=== PATIENT | male | born 1990 ===

== ENCOUNTER 2019-06-18 17:56 | Emergency (ER) | payer OTHER ==
--- NOTE | 2019-06-18 18:06 | EDM.PDOC ---
ED HPI GENERAL MEDICAL PROBLEM - General Source of Information: Reports: Patient, EMS, EMS Notes Reviewed, Family, RN, RN Notes Reviewed History Limitations: Reports: No Limitations - History of Present Illness Onset: Today, Sudden <Ruth Banegas - Last Filed: 06/18/19 18:39> <Gustavo Pollard - Last Filed: 06/18/19 20:33> - General Chief Complaint: Neurological Problem Stated Complaint: AMBULANCE Time Seen by Provider: 06/18/19 18:05 - History of Present Illness INITIAL COMMENTS - FREE TEXT/NARRATIVE: Pt to ER per [facility] with c/o new onset seizure. Pt alert and oriented upon arrival to the ER. Uncle present in the room that witnessed the seizure states the [place] to the side and began having a seizure. Uncle states he thinks it lasted about 3 minutes. He states when it stopped the patient was disoriented to person, place , and time. Uncle states he did not hit his head. States he was bent over when he "slumped" to the side. Pt denies any seizure history. States he has a history of asthma, but takes no meds for it. Pt states the only medication he takes is Adderall. Denies regular alcohol use, states he had a "few beers" last night. Denies drug use. Denies any recent illness. (Ruth Banegas) - Related Data Allergies Allergy/AdvReac Type Severity Reaction Status Date / Time erythromycin base Allergy Nausea and Verified 06/18/19 18:03 Vomiting Home Meds: Home Meds Dextroamphetamine/Amphetamine [Adderall 20 mg Tablet] 20 mg PO DAILY 06/18/19 [ History] ED ROS GENERAL - Review of Systems Review Of Systems: ROS reveals no pertinent complaints other than HPI. <Ruth Banegas - Last Filed: 06/18/19 18:39> - Physical Exam Exam: See Below Exam Limited By: No Limitations General Appearance: Alert, WD/WN, No Apparent Distress Eye Exam: Bilateral Eye: EOMI, Normal Inspection, PERRL (5 brisk) Ears: Normal External Exam, Hearing Grossly Normal Nose: Normal Inspection Throat/Mouth: Normal Inspection, Normal Voice, No Airway Compromise. No: Evidence of Tongue Biting Head Exam: Atraumatic, Normocephalic Neck: Normal Inspection, Supple, Non-Tender, Full Range of Motion Respiratory/Chest: No Respiratory Distress, Lungs Clear, Normal Breath Sounds, No Accessory Muscle Use, Chest Non-Tender Cardiovascular: Normal Peripheral Pulses, Regular Rate, Rhythm, No Edema, No Gallop, No JVD, No Murmur, No Rub, Tachycardia GI/Abdominal: Normal Bowel Sounds, Soft, Non-Tender, No Organomegaly, No Distention, No Abnormal Bruit, No Mass, Pelvis Stable (Male) Exam: Deferred Rectal (Males) Exam: Deferred Neuro Exam (Abbreviated): Alert, Oriented, CN II-XII Intact, Normal Cognition, Normal Gait, Normal Reflexes, No Motor/Sensory Deficits Back Exam: Normal Inspection, Full Range of Motion, NT Extremities: Normal Inspection, Normal Range of Motion, Non-Tender, No Pedal Edema, Normal Capillary Refill Psychiatric: Normal Affect, Normal Mood Skin Exam: Warm, Dry, Intact, Normal Color, No Rash <Ruth Banegas - Last Filed: 06/18/19 18:39> Course <Ruth Banegas - Last Filed: 06/18/19 18:39> <Gustavo Pollard - Last Filed: 06/18/19 20:33> - Vital Signs Last Recorded V/S: Last Vital Signs Temp 36.1 C 06/18/19 17:56 Pulse 132 H 06/18/19 17:56 Resp BP 166/104 H 06/18/19 17:56 Pulse Ox 97 06/18/19 17:56 - Orders/Labs/Meds Orders: Active Orders 24 hr Category Date Time Status Blood Glucose Check, Bedside [RC] ONETIME Care 06/18/19 17:58 Active EKG Documentation Completion [RC] STAT Care 06/18/19 17:57 Active UA W/MICROSCOPIC [URIN] Stat Lab 06/18/19 20:02 Results Labs: Laboratory Tests 06/18/19 06/18/19 06/18/19 Range/Units 18:04 18:04 18:20 WBC 7.0 (5.0-10.0) 10^3/uL RBC 4.65 (4.6-6.2) 10^6/uL Hgb 15.0 (14.0-18.0) g/dL Hct 42.8 (40.0-54.0) % MCV 92.0 (80-100) fL MCH 32.3 (27.0-34.0) pg MCHC 35.0 (33.0-35.0) g/dL Plt Count 207 (150-450) 10^3/uL Neut % (Auto) 64.8 (42.2-75.2) % Lymph % (Auto) 19.7 L (20.5-50.1) % Davison % (Auto) 9.8 H (2-8) % Eos % (Auto) 5.0 H (1.0-3.0) % Baso % (Auto) 0.7 (0.0-1.0) % Sodium 137 (135-145) mmol/L Potassium 3.7 (3.6-5.0) mmol/L Chloride 102 (101-111) mmol/L Carbon Dioxide 22.0 (21.0-31.0) mmol/L Anion Gap 16.7 BUN 18 (7-18) mg/dL Creatinine 1.0 (0.6-1.3) mg/dL Est Cr Clr Drug Dosing 112.54 mL/min Estimated GFR (MDRD) > 60 BUN/Creatinine Ratio 18.00 Glucose 101 (74-105) mg/dL POC Glucose 80 (70-105) mg/dl Calcium 9.5 (8.4-10.2) mg/dl Total Bilirubin 2.2 H (0.2-1.0) mg/dL AST 115 H (10-42) IU/L ALT 105 H (10-60) IU/L Alkaline Phosphatase 56 (42-121) IU/L Total Protein 7.4 (6.7-8.2) g/dl Albumin 4.6 (3.2-5.5) g/dl Globulin 2.8 Albumin/Globulin Ratio 1.64 Urine Color (YELLOW) Urine Appearance (CLEAR) Urine pH (5.0-9.0) Ur Specific [place] (1.005-1.030) Urine Protein (NEGATIVE) Urine Glucose (UA) (NEGATIVE) Urine Ketones (NEGATIVE) Urine Occult Blood (NEGATIVE) Urine Nitrite (NEGATIVE) Urine Bilirubin (NEGATIVE) Urine Urobilinogen (0.2-1.0) mg/dL Ur Leukocyte Esterase (NEGATIVE) Urine Opiates Screen (NEGATIVE) Ur Oxycodone Screen (NEGATIVE) Urine Methadone Screen (NEGATIVE) Ur Barbiturates Screen (NEGATIVE) U Tricyclic Antidepress (NEGATIVE) Ur Phencyclidine Scrn (NEGATIVE) Ur Amphetamine Screen (NEGATIVE) U Methamphetamines Scrn (NEGATIVE) Urine MDMA Screen (NEGATIVE) U Benzodiazepines Scrn (NEGATIVE) Urine Cocaine Screen (NEGATIVE) U Marijuana (THC) Screen (NEGATIVE) Ethyl Alcohol < 5 mg/dL 06/18/19 06/18/19 Range/Units 20:02 20:02 WBC (5.0-10.0) 10^3/uL RBC (4.6-6.2) 10^6/uL Hgb (14.0-18.0) g/dL Hct (40.0-54.0) % MCV (80-100) fL MCH (27.0-34.0) pg MCHC (33.0-35.0) g/dL Plt Count (150-450) 10^3/uL Neut % (Auto) (42.2-75.2) % Lymph % (Auto) (20.5-50.1) % [place] % (Auto) (2-8) % Eos % (Auto) (1.0-3.0) % Baso % (Auto) (0.0-1.0) % Sodium (135-145) mmol/L Potassium (3.6-5.0) mmol/L Chloride (101-111) mmol/L Carbon Dioxide (21.0-31.0) mmol/L Anion Gap BUN (7-18) mg/dL Creatinine (0.6-1.3) mg/dL Est Cr Clr Drug Dosing mL/min Estimated GFR (MDRD) BUN/Creatinine Ratio Glucose (74-105) mg/dL POC Glucose (70-105) mg/dl Calcium (8.4-10.2) mg/dl Total Bilirubin (0.2-1.0) mg/dL AST (10-42) IU/L ALT (10-60) IU/L Alkaline Phosphatase (42-121) IU/L Total Protein (6.7-8.2) g/dl Albumin (3.2-5.5) g/dl Globulin Albumin/Globulin Ratio Urine Color Yellow (YELLOW) Urine Appearance Clear (CLEAR) Urine pH 5.5 (5.0-9.0) Ur Specific [place] >= 1.030 (1.005-1.030) Urine Protein 100 H (NEGATIVE) Urine Glucose (UA) Negative (NEGATIVE) Urine Ketones 15 H (NEGATIVE) Urine Occult Blood Trace-lysed H (NEGATIVE) Urine Nitrite Negative (NEGATIVE) Urine Bilirubin Small H (NEGATIVE) Urine Urobilinogen 1.0 (0.2-1.0) mg/dL Ur Leukocyte Esterase Negative (NEGATIVE) Urine Opiates Screen Negative (NEGATIVE) Ur Oxycodone Screen Negative (NEGATIVE) Urine Methadone Screen Negative (NEGATIVE) Ur Barbiturates Screen Negative (NEGATIVE) U Tricyclic Antidepress Negative (NEGATIVE) Ur Phencyclidine Scrn Negative (NEGATIVE) Ur Amphetamine Screen Positive H (NEGATIVE) U Methamphetamines Scrn Negative (NEGATIVE) Urine MDMA Screen Negative (NEGATIVE) U Benzodiazepines Scrn Negative (NEGATIVE) Urine Cocaine Screen Negative (NEGATIVE) U Marijuana (THC) Screen Negative (NEGATIVE) Ethyl Alcohol mg/dL Meds: Medications Discontinued Medications Generic Name Dose Route Start Last Admin Trade Name Freq PRN Reason Stop Dose Admin Lactated Ringer's 1,000 mls @ 999 mls/hr 06/18/19 18:43 06/18/19 18:58 Ringers, Lactated IV 06/18/19 19:43 999 mls/hr .BOLUS ONE Administration Lorazepam 1 mg 06/18/19 18:38 06/18/19 18:57 Ativan IVPUSH 06/18/19 18:39 1 mg ONETIME ONE Administration - Re-Assessments/Exams Free Text/Narrative Re-Assessment/Exam: 06/18/19 20:26 results discussed with pt & family. pt impatient about leaving wants to get home. states will f/u with PMD once they return to [place]. they are here duck hunting this weekend. (Gustavo Pollard) Departure <Ruth Banegas - Last Filed: 06/18/19 18:39> - Departure Time of Disposition: 20:28 Condition: Good <Gustavo Pollard - Last Filed: 06/18/19 20:33> - Departure Disposition: Home, Self-Care 01 Clinical Impression: Seizure, History of traumatic injury of head - Discharge Information Instructions: Epilepsy, [id number] Forms: ED Department Discharge Additional Instructions: 1) rest and avoid vigorous activity 2) see family doctor when reach home for follow up on seizure and elevated liver enzymes 3) return if there is any change or concern
[2019-06-18 18:36] LABS: ANION GAP 16.7; CHLORIDE,CL 102 mmol/L (101-111); SODIUM,NA 137 mmol/L (135-145)
[2019-06-18] MEDS ORDERED: LORazepam 2 MG/ML Syringe IVPUSH ONE (18:38)
[2019-06-18] MEDS ORDERED: Lactated Ringers 1,000 ML IV ONE (18:43)
== END 2019-06-18 20:57 | disposition home or self-care (01) ==
LOC: DL.ED 17:56
DX: R56.9 Unspecified convulsions (principal); Z87.828 Personal history of other (healed) physical injury and trauma; Z88.1 Allergy status to other antibiotic agents
CPT/HCPCS: 36415; 70450; 80053; 80305; 80320; 81001; 82962; 85025; 93005; 96360; 99285; J2060; J7120; G0480